=== PATIENT | male | born 1950 | race Caucasian/White ===

== ENCOUNTER → 2019-09-18 | Outpatient (CLI) | payer OTHER | END | disposition home or self-care (01) | LOC: RAD 11:44 | PROVIDERS: ATTEND Orthopaedic Surgery | DX: M19.071 Primary osteoarthritis, right ankle and foot (principal); M47.896 Other spondylosis, lumbar region; M25.552 Pain in left hip ==

== ENCOUNTER 2020-01-26 08:50 | Emergency (ER) | payer BC, OTHER ==
[~2020-01-26] VITALS: Ht 172.7 cm; Wt 91.0 kg
[2020-01-26] MEDS ORDERED: KETOROLAC 30 MG/1 ML ONE (10:07)
--- NOTE | 2020-01-26 10:12 | NUR ---
pt back from xray, able to stand for xray. pt medicated per emar, tolerated well, denies pain at rest at this time.
[2020-01-26] MEDS ORDERED: KETOROLAC 30 MG/1 ML IVPush ONE (10:30)
--- NOTE | 2020-01-26 12:00 | NUR ---
PT RESTING ON GURNEY, PT A&O, RESPS EVEN AND UNLABORED. PT DENIES PAIN AT THIS TIME. AWAITING MD REASSSESSMENT AND DISPO.
--- NOTE | 2020-01-26 13:30 | NUR ---
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 MD NOTIFIED ALL RESULTS BACK, PT REQUESTING DC.
--- NOTE | 2020-01-26 13:45 | NUR ---
REPORT GIVEN TO JUAREZ CESAR.
[2020-01-26 14:01] VITALS: BP 173/92
--- NOTE | 2020-01-26 14:03 | NUR ---
TASK RN: Patient/Caregiver given discharge instructions and they have confirmed that they understand the instructions. Patient ambulatory with steady gait.
== END 2020-01-26 14:24 | disposition home or self-care (01) ==
LOC: ED 14:22
DX: S20.219A Contusion of unspecified front wall of thorax, initial encounter (principal); R94.31 Abnormal electrocardiogram [ECG] [EKG]; Z87.891 Personal history of nicotine dependence; W01.0XXA Fall on same level from slipping, tripping and stumbling without subsequent striking against object, initial encounter; Y93.89 Activity, other specified; Y92.009 Unspecified place in unspecified non-institutional (private) residence as the place of occurrence of the external cause; Y99.8 Other external cause status
CPT/HCPCS: 71046; 93005; 96374; 99285; J1885